=== PATIENT | female | born 1970 ===

== ENCOUNTER 2017-04-24 15:40 | Emergency (ER) | payer MEDICAID ==
--- NOTE | 2017-04-24 17:10 | EDM.PDOC ---
ED HPI GENERAL MEDICAL PROBLEM - General Chief Complaint: General Stated Complaint: NECK PAIN FROM FALL Time Seen by Provider: 04/24/17 16:40 Source of Information: Reports: Patient History Limitations: Reports: No Limitations - History of Present Illness INITIAL COMMENTS - FREE TEXT/NARRATIVE: HISTORY AND PHYSICAL: History of present illness: [Comes to the emergency room complaining of head and neck pain. States that she was walking her dog yesterday when she slipped on a patch of ice knocking her feet out from under her landing on her back with her head and neck hitting the pavement. She is complaining of pain to her head and and neck, as well as pain to her upper mid and low back. She states that her broke her left forearm in January 2017, and she [facility] the past several weeks. She is scheduled to follow-up with an orthopedist next week. She apparently has been prescribed [place] for her arm fracture. She has been doubling up on this medication for the past day due to her back pain.] Review of systems: As per history of present illness and below otherwise all systems reviewed and negative. Past medical history: As per history of present illness and as reviewed below otherwise noncontributory. Surgical history: As per history of present illness and as reviewed below otherwise noncontributory. Social history: No reported history of drug or alcohol abuse. Family history: As per history of present illness and as reviewed below otherwise noncontributory. Physical exam: HEENT: Atraumatic, normocephalic. Areas of tenderness over occipital scalp. No lacerations or bruises. Oral mucous membranes are pink and moist. Neck: Tender w/ palpation over posterior neck and c-spine. Back: Tender over thoracic spine, and throughout entire spine and soft tissues. Exam findings are disproportionate to patient's presentation. Extremities: Atraumatic. Neurovascular unremarkable. Neuro: Awake, alert, oriented. Motor and sensory unremarkable throughout. Exam nonfocal. Diagnostics: [CT head and neck w/o contrast, thoracic spine x-ray, lumbar spine x-ray] Therapeutics: [Toradol 60 mg IM] Impression: [neck pain upper back pain low back pain] Plan: [Head CT is negative for bleed and abnormality. No abnormalities of the C-spine , thoracic and lumbar spine. She is given Toradol 60mg IM and notified of radiology results. She is discharged home with instructions to follow-up with her PCP, an orthopedist. Tylenol or ibuprofen as needed for discomfort. May alternate heat and ice. She is in agreement with today's discussion. All of her questions are answered and concerns are addressed. ] Definitive disposition and diagnosis as appropriate pending reevaluation and review of above. Whole back and neck Pain Score (Numeric/FACES): 9 - Related Data Allergies Allergy/AdvReac Type Severity Reaction Status Date / Time No Known Allergies Allergy Verified 04/24/17 16:28 Home Meds: Home Meds . [Unable to Verify Home Med List] 04/24/17 [History] Past Medical History Psychiatric History: Reports: Anxiety, Bipolar, Depression, PTSD Social & Family History - Family History Family Medical History: Noncontributory - Tobacco Use Smoking Status *Q: Current Every Day Smoker Years of Tobacco use: 35 Packs/Tins Daily: 1 - Caffeine Use Caffeine Use: Reports: None - Recreational Drug Use Recreational Drug Use: No ED ROS GENERAL - Review of Systems Review Of Systems: ROS reveals no pertinent complaints other than HPI. ED EXAM, GENERAL - Physical Exam Exam: See Below Course - Vital Signs Last Recorded V/S: Last Vital Signs Temp 98.7 F 04/24/17 16:29 Pulse 82 04/24/17 16:29 Resp 16 04/24/17 16:29 BP 124/82 04/24/17 16:29 Pulse Ox 91 L 04/24/17 16:29 - Orders/Labs/Meds Orders: Active Orders 24 hr Category Date Time Status C-Spine [Cervical Spine wo Cont] [CT] Stat Exams 04/24/17 16:44 Taken Head wo Cont [CT] Stat Exams 04/24/17 16:44 Taken Lumbar Spine 2 or 3V [CR] Stat Exams 04/24/17 16:45 Taken Thoracic Spine 2V [CR] Stat Exams 04/24/17 16:45 Taken Meds: Medications Discontinued Medications Generic Name Dose Route Start Last Admin Trade Name Freq PRN Reason Stop Dose Admin Ketorolac Tromethamine 60 mg 04/24/17 18:00 04/24/17 18:24 Toradol IM 04/24/17 18:01 60 mg ONETIME ONE Administration Departure - Departure Time of Disposition: 18:20 Disposition: Home, Self-Care 01 Condition: Good Clinical Impression: Neck pain, Back pain - Discharge Information Instructions: Muscle Pain, Adult, Cervical Sprain, [id number] Referrals: PCP,None [Primary Care Provider] - Forms: ED Department Discharge Additional Instructions: The following information is given to patients seen in the emergency department who are being discharged to home. This information is to outline your options for follow-up care. We provide all patients seen in our emergency department with a follow-up referral. The need for follow-up, as well as the timing and circumstances, are variable depending upon the specifics of your emergency department visit. If you don't have a primary care physician on staff, we will provide you with a referral. We always advise you to contact your personal physician following an emergency department visit to inform them of the circumstance of the visit and for follow-up with them and/or the need for any referrals to a consulting specialist. The emergency department will also refer you to a specialist when appropriate. This referral assures that you have the opportunity for follow-up care with a specialist. All of these measure are taken in an effort to provide you with optimal care, which includes your follow-up. Under all circumstances we always encourage you to contact your private physician who remains a resource for coordinating your care. When calling for follow-up care, please make the office aware that this follow-up is from your recent emergency room visit. If for any reason you are refused follow-up, please contact the [facility] emergency department at and asked to speak to the emergency department charge nurse. [facility] [address] [place] [id number] Follow-up with her local primary care provider and with the orthopedist as scheduled. You may take Tylenol alternating with ibuprofen as needed. Ice packs alternating with heating pad may also help with your pain. Return to ER as needed as discussed. - My Orders Last 24 Hours: My Active Orders 04/24/17 16:44 C-Spine [Cervical Spine wo Cont] [CT] Stat Head wo Cont [CT] Stat 04/24/17 16:45 Lumbar Spine 2 or 3V [CR] Stat Thoracic Spine 2V [CR] Stat - Assessment/Plan Last 24 Hours: My Active Orders 04/24/17 16:44 C-Spine [Cervical Spine wo Cont] [CT] Stat Head wo Cont [CT] Stat 04/24/17 16:45 Lumbar Spine 2 or 3V [CR] Stat Thoracic Spine 2V [CR] Stat
[2017-04-24] MEDS ORDERED: Ketorolac 60 MG/2 ML SDV IM ONE (18:00)
--- NOTE | 2017-04-27 05:08 | CT ---
EXAM DATE: 04/24/17 PATIENT'S AGE: 47 Patient: TANISHA POMPA Facility: [place], [place] Site . Site : 1970 Study: CT Head [id number]/2/2018 5:17:50 PM Ordering Physician: Doctor Reyes Final Report: INDICATION: Fall, TECHNIQUE: CT Head without contrast. COMPARISON: None. FINDINGS: There is no sign of intracranial hemorrhage or mass effect. The stack-white differentiation is preserved. Punctate bilateral basal ganglial calcifications. No abnormal intra-axial or extra-axial fluid collection. No acute disease of the visualized paranasal sinuses and mastoid air cells. No fracture evident. No scalp hematoma/laceration. IMPRESSION: No acute intracranial process. Dictated by: Abhay Herrera MD @ 04/24/2017 17:25:01 (Electronic Signature) Report Signed by Proxy. [facility]
--- NOTE | 2017-04-27 05:09 | CT ---
EXAM DATE: 04/24/17 PATIENT'S AGE: 47 Patient: TANISHA POMPA Facility: [place], [place] Site . Site : 1970 Study: CT Spine Cervical [id number]/2/2018 5:18:30 PM Ordering Physician: Doctor Reyes Final Report: INDICATION: Fall yesterday, neck pain since Positive LOC TECHNIQUE: CT cervical spine without contrast COMPARISON: None FINDINGS: Vertebrae: There are no fractures or suspicious bony lesions. Discs and facet joints: Multilevel degenerate changes. Extraspinal findings: Prevertebral soft tissues, visualized airway, and visualized lungs are unremarkable. IMPRESSION: No acute bony abnormality of the cervical spine. Dictated by Abhay Herrera MD @ 04/24/2017 5:27:01 PM Dictated by: Abhay Herrera MD @ 04/24/2017 17:27:08 (Electronic Signature) Report Signed by Proxy. MIKE
--- NOTE | 2017-04-27 05:10 | CR ---
EXAM DATE: 04/24/17 PATIENT'S AGE: 47 Patient: TANISHA POMPA Facility: [place], [place] Site . Site : 1970 Study: XRay Spine Thoracic [id number]/2/2018 5:31:39 PM Ordering Physician: Doctor Reyes Final Report: INDICATION: Fall, back pain TECHNIQUE: Thoracic spine radiograph 2 views COMPARISON: None FINDINGS: Bones: No acute fractures or aggressive bone lesions are identified. Alignment is normal. Discs: The disc spaces are unremarkable in appearance. The facet joints are unremarkable. Soft tissues: Unremarkable. No radiopaque foreign bodies are seen. IMPRESSION: 1. No acute osseous injuries or abnormalities are noted. Dictated by: Pavel Ching MD @ 04/24/2017 18:03:40 (Electronic Signature) Report Signed by Proxy. [facility]
--- NOTE | 2017-04-27 05:11 | CR ---
EXAM DATE: 04/24/17 PATIENT'S AGE: 47 Patient: TANISHA POMPA Facility: [place], [place] Site . Site : 1970 Study: XRay Spine Lumbar [id number]/2/2018 5:31:57 PM Ordering Physician: Doctor Reyes Final Report: INDICATION: Fall, back pain TECHNIQUE: Lumbar spine radiograph 3 views COMPARISON: None FINDINGS: Bones: No acute fractures or aggressive bone lesions are identified. Grade I anterolisthesis of L5-S1 is present. Discs: The disc spaces are unremarkable in appearance. The facet joints are unremarkable. Soft tissues: Unremarkable. No radiopaque foreign bodies are seen. IMPRESSION: 1. No acute osseous injuries or abnormalities are noted. Dictated by: Pavel Ching MD @ 04/24/2017 18:04:39 (Electronic Signature) Report Signed by Proxy. [facility]KE
== END 2017-04-24 18:42 | disposition home or self-care (01) ==
LOC: MW.ED 15:40
DX: M54.2 Cervicalgia (principal); M54.6 Pain in thoracic spine; M54.5 Low back pain; F17.210 Nicotine dependence, cigarettes, uncomplicated; W00.0XXA Fall on same level due to ice and snow, initial encounter
CPT/HCPCS: 70450; 72070; 72100; 72125; 96372; 99283; J1885; 99282